=== PATIENT | female | born 1995 | race Caucasian/White ===

== ENCOUNTER 2018-12-21 23:48 | Emergency (ER) | payer BC ==
[~2018-12-21] VITALS: Ht 157.5 cm; Wt 117.9 kg
[2018-12-21 23:59] VITALS: BP 146/78
--- NOTE | 2018-12-22 00:07 | NUR ---
PT TAKEN TO BED 3
--- NOTE | 2018-12-22 00:13 | NUR ---
23/F CO FEVER, COUGH, AND NASAL CONGESTION. REPORTS VAGINAL BLEEDING FOR 3 MONTH. HEAVY FLOW X 1 WEEK. REPORTS PUDDLE OF MENSES. CHANGES SANIT[facility] [place] MULTIPLE TIME DAY. NO BIRTHCONTROL STATED. HX IRREGULAR PERIOD. NO RX. AOX4. ABLE TO VERBALIZE NEEDS. EVEN UNLABORED BREATHING CHEST RISE SYMMETRICAL.. ABD SOFT NONDISTENDED. MOTHER AT BEDSIDE. BED IN LOWEST POSITION. MD MADE AWARE, CONTINUE TO MONITOR.
[2018-12-22] MEDS ORDERED: KETOROLAC 30 MG/ML VIAL IM ONE (00:30)
[2018-12-22 00:55] LABS: APPEARANCE,URINE BLOODY (CLEAR); BILIRUBIN,URINE 1+ (NEGATIVE); BLOOD, URINE 3+ (NEGATIVE); COLOR,URINE RED (YELLOW); LEUKOCYTE ESTERASE ,URINE TRACE (NEGATIVE); NITRITE, URINE POSITIVE (NEGATIVE); UGLUCOSE NEGATIVE (NEGATIVE)
[2018-12-22 00:56] LABS: BASOPHILS % (AUTO) 0.6 % (0.0-2.0); EOSINOPHILS # (AUTO) 0.1 K/uL (0-0.4); EOSINOPHILS % (AUTO) 0.9 % (0.0-4.0); HEMATOCRIT 39.6 % (36-48); HEMOGLOBIN 13.5 g/dL (12.0-16.0); LYMPHOCYTES # (AUTO) 1.4 K/uL (2.5-16.5); LYMPHOCYTES % (AUTO) 24.5 % (20.5-51.1); MEAN CORPUSCULAR HEMOGLOBIN 30 pg (27-31); MEAN CORPUSCULAR HGB CONC 34 g/dL (33-37); MEAN CORPUSCULAR VOLUME 86.8 fL (80-94); MONOCYTES # (AUTO) 0.7 K/uL (0.8-1.0); MONOCYTES % (AUTO) 12.7 % (1.7-9.3); NEUTROPHILS # (AUTO) 3.6 K/uL (1.8-7.7); NEUTROPHILS % (AUTO) 61.3 % (42.2-75.2); PLATELET COUNT (AUTO) 212 K/uL (140-450); RED BLOOD CELL COUNT(AUTO) 4.56 MIL/uL (4.20-5.40); RED CELL DISTRIBUTION WIDTH 13.1 % (11.6-13.7); WHITE BLOOD COUNT (AUTO) 5.8 K/uL (4.8-10.8)
[2018-12-22 01:10] LABS: RBC,URINE TOO NUMEROUS TO COUN /HPF (0-5)
[2018-12-22 01:39] VITALS: BP 146/78
--- NOTE | 2018-12-22 01:40 | NUR ---
Patient discharged with v/s stable. Written and verbal after care instructions given and explained. Patient alert, oriented and verbalized understanding of instructions. Ambulatory with steady gait. All questions addressed prior to discharge. ID band removed. Patient advised to follow up with PMD. Rx of NAPROSYN 500MG, TAMIFLU 75MG, GUAIATUSSIN 5ML given. Patient educated on indication of medication including possible reaction and side effects. Opportunity to ask questions provided and answered.
== END 2018-12-22 01:40 | disposition home or self-care (01) ==
LOC: MED 23:48
DX: J10.1 Influenza due to other identified influenza virus with other respiratory manifestations (principal); N93.8 Other specified abnormal uterine and vaginal bleeding
CPT/HCPCS: 36415; 81001; 81025; 85025; 87086; 87804; 96372; 99283; J1885

== ENCOUNTER 2019-02-19 23:12 | Emergency (ER) | payer BC ==
[~2019-02-19] VITALS: Ht 157.5 cm; Wt 127.0 kg
[2019-02-19 23:16] VITALS: BP 140/90
--- NOTE | 2019-02-19 23:17 | NUR ---
TO BED # 11 AMBULATORY
--- NOTE | 2019-02-19 23:35 | NUR ---
23 y/o F presented to ED with c/o nausea and abdominal pain x2 weeks, worsening today. AAOx4. Per pt, "I just feel bloated and fatigued." 9/10 pain, dull, cramping, and constant. pain radiates from abdomen to lower back. denies hematuria and burning during urination. abdomen tender to touch. family at bedside. bedrail x1 up. ERMD notified. Will continue to monitor.
[2019-02-19 23:45] LABS: APPEARANCE,URINE CLEAR (CLEAR); BILIRUBIN,URINE NEGATIVE (NEGATIVE); BLOOD, URINE 2+ (NEGATIVE); COLOR,URINE YELLOW (YELLOW); LEUKOCYTE ESTERASE ,URINE NEGATIVE (NEGATIVE); NITRITE, URINE NEGATIVE (NEGATIVE); UGLUCOSE NEGATIVE (NEGATIVE)
--- NOTE | 2019-02-19 23:53 | NUR ---
PT TAKEN TO XRAY
[2019-02-19 23:56] LABS: RBC,URINE 0-5 /HPF (0-5); WBC,URINE 0-5 /HPF (0-5)
--- NOTE | 2019-02-20 00:31 | NUR ---
PT TAKEN TO CT
--- NOTE | 2019-02-20 00:40 | NUR ---
PT BACK FROM CT
[2019-02-20 00:52] LABS: BASOPHILS % (AUTO) 0.5 % (0.0-2.0); EOSINOPHILS # (AUTO) 0.2 K/uL (0-0.4); EOSINOPHILS % (AUTO) 2.4 % (0.0-4.0); HEMOGLOBIN 13.7 g/dL (12.0-16.0); LYMPHOCYTES % (AUTO) 38.6 % (20.5-51.1); MEAN CORPUSCULAR HEMOGLOBIN 30 pg (27-31); MEAN CORPUSCULAR HGB CONC 34 g/dL (33-37); MEAN CORPUSCULAR VOLUME 86.1 fL (80-94); MONOCYTES # (AUTO) 0.5 K/uL (0.8-1.0); MONOCYTES % (AUTO) 6.4 % (1.7-9.3); NEUTROPHILS # (AUTO) 4.1 K/uL (1.8-7.7); NEUTROPHILS % (AUTO) 52.1 % (42.2-75.2); PLATELET COUNT (AUTO) 266 K/uL (140-450); RED BLOOD CELL COUNT(AUTO) 4.64 MIL/uL (4.20-5.40); RED CELL DISTRIBUTION WIDTH 13.1 % (11.6-13.7); WHITE BLOOD COUNT (AUTO) 7.9 K/uL (4.8-10.8)
[2019-02-20 00:53] VITALS: BP 138/82
--- NOTE | 2019-02-20 00:54 | NUR ---
PT AWAKE, VSS. FAMILY AT BEDSIDE. WILL CONTINUE TO MONITOR.
[2019-02-20 01:17] LABS: ALBUMIN 3.8 g/dL (3.4-5.0); ANION GAP 11.2 (8-16); CARBON DIOXIDE 29.4 mmol/L (21-32); CREATININE 0.7 mg/dL (0.6-1.3); POTASSIUM 4.6 mmol/L (3.5-5.1); TOTAL BILIRUBIN 0.3 mg/dL (0.0-1.0)
== END 2019-02-20 01:35 | disposition home or self-care (01) ==
LOC: MED 23:12
DX: K59.00 Constipation, unspecified (principal); N92.6 Irregular menstruation, unspecified
CPT/HCPCS: 36415; 74018; 80053; 81001; 81025; 83690; 85025; 87086; 99284

== ENCOUNTER 2020-01-23 23:16 | Emergency (ER) | payer BC, SELFPAY ==
[~2020-01-23] VITALS: Ht 160 cm; Wt 114.8 kg
[2020-01-23 23:32] VITALS: BP 153/118
[2020-01-23] MEDS ORDERED: NACL 0.9% 2,000 ML IV ONE (23:40)
[2020-01-23] MEDS ORDERED: ACETAMINOPHEN EXTRA STRENGTH 500 MG TAB PO ONE (23:40)
[2020-01-24 00:42] LABS: HEMATOCRIT 42.5 % (36-48); HEMOGLOBIN 14.5 g/dL (12.0-16.0); MEAN CORPUSCULAR HEMOGLOBIN 30 pg (27-31); MEAN CORPUSCULAR HGB CONC 34 g/dL (33-37); MEAN CORPUSCULAR VOLUME 87.2 fL (80-94); RED BLOOD CELL COUNT(AUTO) 4.87 MIL/uL (4.20-5.40); RED CELL DISTRIBUTION WIDTH 13.1 % (11.6-13.7); WHITE BLOOD COUNT (AUTO) 13.6 K/uL (4.8-10.8)
[2020-01-24 00:59] LABS: ALBUMIN 4.2 g/dL (3.4-5.0); CARBON DIOXIDE 24.7 mmol/L (21-32); CREATININE 0.9 mg/dL (0.6-1.3); POTASSIUM 3.7 mmol/L (3.5-5.1); TOTAL BILIRUBIN 0.6 mg/dL (0.0-1.0)
[2020-01-24 01:03] LABS: APPEARANCE,URINE SL CLOUDY (CLEAR); BILIRUBIN,URINE NEGATIVE (NEGATIVE); BLOOD, URINE 3+ (NEGATIVE); COLOR,URINE RED (YELLOW); LEUKOCYTE ESTERASE ,URINE TRACE (NEGATIVE); NITRITE, URINE NEGATIVE (NEGATIVE); PH,URINE >=9.0 (5.0-9.0); UGLUCOSE NEGATIVE (NEGATIVE)
[2020-01-24 01:15] LABS: PROTHROMBIN TIME 11.2 secs (10.8-13.4)
[2020-01-24 01:48] LABS: BASOPHILS % (MANUAL) 0 % (0-2); EOSINOPHILS % (MANUAL) 0 % (0-4); LYMPHOCYTES % (MANUAL) 9 % (20-46); MONOCYTES % (MANUAL) 3 % (5-12)
[2020-01-24 01:49] LABS: PLATELET COUNT (AUTO) 263 K/uL (140-450)
[2020-01-24 02:14] LABS: RBC,URINE TOO NUMEROUS TO COUN /HPF (0-5)
[2020-01-24 02:15] LABS: WBC,URINE 0-5 /HPF (0-5)
[2020-01-24] MEDS ORDERED: ACETAMINOPHEN EXTRA STRENGTH 500 MG TAB PO ONE ×2 (03:55→05:05)
[2020-01-24] MEDS ORDERED: IBUPROFEN 400 MG TAB PO ONE (04:30)
[2020-01-24] MEDS ORDERED: AMPICILLIN/SULBACTAM 3 GM in NACL 0.9% 100 ML IV ONE (05:15)
[2020-01-24] MEDS ORDERED: AMPICILLIN/SULBACTAM 3 GM VIAL ONE (05:31)
[2020-01-24 07:21] VITALS: BP 124/74
== END 2020-01-24 07:21 | disposition home or self-care (01) ==
LOC: MED 23:16 → EEVIPCON 23:16 → MED 01-24 07:21
DX: J02.9 Acute pharyngitis, unspecified (principal)
CPT/HCPCS: 36415; 36600; 70491; 71045; 80053; 81001; 81025; 82550; 82553; 82803; 83605; 83874; 83880; 84484; 85025; 85610; 85730; 87040; 87081; 87086; 87804; 96365; 99284; J0295; J7030; Q0092; Q9967; 99285

== ENCOUNTER 2023-08-01 23:40 | Emergency (ER) | payer SELFPAY ==
[~2023-08-01] VITALS: Ht 160 cm; Wt 131.5 kg
[2023-08-01 23:47] VITALS: BP 199/138; PULSE 110; RESP 16; TEMP 97.4
[2023-08-02 00:38] LABS: APPEARANCE,URINE CLEAR (CLEAR); BILIRUBIN,URINE NEGATIVE (NEGATIVE); BLOOD, URINE TRACE-I (NEGATIVE); COLOR,URINE YELLOW (YELLOW); LEUKOCYTE ESTERASE ,URINE NEGATIVE (NEGATIVE); NITRITE, URINE NEGATIVE (NEGATIVE); PROTEIN,URINE 1+ (NEGATIVE); UGLUCOSE NEGATIVE (NEGATIVE)
[2023-08-02 00:43] LABS: BACTERIA,URINE 10-30 (MOD) /HPF (None Seen); MUCUS,URINE 1+ /LPF (None Seen); RBC,URINE 0-5 /HPF (0-5); SQUAMOUS EPITHELIAL CELL,UR 20-50 /LPF (0-3 (FEW)); WBC,URINE 0-5 /HPF (0-5)
[2023-08-02] MEDS ORDERED: HYDROcodone/APAP 5/325 MG 1 TAB TAB PO ONE (03:50)
[2023-08-02] MEDS ORDERED: KETOROLAC 30 MG/ML VIAL IM ONE (03:50)
[2023-08-02] MEDS ORDERED: KETOROLAC 60 MG/2 ML VIAL IM ONE (03:59)
[2023-08-02] MEDS ORDERED: NITR100C7 PO (08:00)
[2023-08-02] MEDS ORDERED: NAPR-54 PO (08:00)
[2023-08-02 09:46] VITALS: BP 129/75; PULSE 85; RESP 16; TEMP 98.2; O2SAT 99
== END 2023-08-02 09:46 | disposition home or self-care (01) ==
LOC: MED 23:40
DX: N39.0 Urinary tract infection, site not specified (principal); E28.2 Polycystic ovarian syndrome; Z79.1 Long term (current) use of non-steroidal anti-inflammatories (NSAID); Z79.2 Long term (current) use of antibiotics
CPT/HCPCS: 74176; 81001; 81025; 87086; 96372; 99285; J1885